=== PATIENT | female | born 1980 | race Caucasian/White ===

== ENCOUNTER 2019-11-16 16:24 | Emergency (ER) | payer OTHER, SELFPAY ==
--- NOTE | ~2019-11-16 | XR_ITS ---
EXAMINATION: XR chest 2V 11/16/2019 17:36 INDICATION: Left chest pain and shortness of breath for 2 days PROCEDURE: 2 view chest COMPARISON: 03/24/2019 FINDINGS: The lungs are clear. The cardiomediastinal silhouette is within normal limits. There are no pleural effusions. There is no pneumothorax suspected. IMPRESSION: 1: NO ACUTE CARDIOPULMONARY DISEASE. Reviewed, dictated and finalized at location A. [facility] RESEARCH TECHNICIAN
[2019-11-16 16:28] VITALS: BP 117/66; PULSE 91; RESP 19; TEMP 36.2; O2SAT 100
--- NOTE | 2019-11-16 16:28 | ECG_ITS ---
Measurements Intervals [place] Rate: 72 P: 34 WI: 128 QRS: 59 QRSD: 88 T: 43 QT: 362 QTc: 398 Interpretive Statements SINUS RHYTHM WITH SINUS ARRHYTHMIA NORMAL ECG Electronically Signed On 11-16-2019 16:32:43 DIVERSITY SPECIALIST by Jacek Soliz D.O.
[2019-11-16 16:41] LABS: Basophils Percent Auto 0.3 % (0.2-1.2); Eosinophils Absolute Auto 0.2 K/mm3 (0-0.3); Eosinophils Percent Auto 1.5 % (0-4.4); Hematocrit 40.6 % (37.0-47.0); Hemoglobin 13.1 g/dL (12.0-15.0); Immature Granulocyte Absolute 0.03 K/mm3 (0.00-0.031); Immature Granulocyte Percent A 0.2 % (0-0.5); Lymphocytes Absolute Auto 3.95 K/mm3 (0.9-3.2); Lymphocytes Percent Auto 31.2 % (18.3-44.2); Mean Corpuscular HGB Conc 32.3 g/dl (32-36); Mean Corpuscular Hemoglobin 30.6 pg (26-34); Mean Corpuscular Volume 94.9 fl (80-100); Mean Platelet Volume 10.6 fl (7.4-10.4); Monocytes Absolute Auto 0.5 K/mm3 (0.1-0.6); Monocytes Percent Auto 3.9 % (2.6-8.5); Neutrophils Percent Auto 62.9 % (45.5-73.1); Platelet Count Result 290 k/mm3 (150-375); Red Blood Count 4.28 M/mm3 (4.2-5.4); Red Cell Distribution Width 14.9 % (11.5-14.5); White Blood Count 12.7 K/mm3 (4.5-10.0)
[2019-11-16 16:51] LABS: INR 0.8; Prothrombin Time 11.2 Seconds (11.1-14.7)
[2019-11-16 16:52] LABS: Partial Thromboplastin Time 26.9 SECONDS (22.3-36.8)
[2019-11-16 16:57] LABS: Blood Urea Nitrogen 6 mg/dL (7-17); Calcium 8.8 mg/dL (8.4-10.2); Carbon Dioxide 25 mmol/L (22-30); Chloride 104 mmol/L (98-107); Estimated Glomerular Filt Rate > 60; Glucose 99 mg/dL (65-105); Potassium 3.9 mmol/L (3.4-5.0); Sodium 138 mmol/L (137-145)
[2019-11-16 17:05] LABS: NT Pro B Type Natriuretic Pept 152 PG/ML (5-100)
[2019-11-16 17:09] LABS: Troponin I < 0.012 ng/mL (0.000-0.034)
== END 2019-11-16 18:34 | disposition left against medical advice (07) ==
LOC: ANHED 18:43
PROVIDERS: Emergency Provider Emergency Medicine; PCP Emergency Medicine
DX: R07.9 Chest pain, unspecified (principal)
CPT/HCPCS: 36415; 71046; 80048; 83880; 84484; 85025; 85610; 85730; 93005; 99199

== ENCOUNTER 2020-06-11 17:18 | Emergency (ER) | payer OTHER, SELFPAY ==
[2020-06-11 17:21] VITALS: BP 125/74; PULSE 89; RESP 16; TEMP 36.8; O2SAT 100
--- NOTE | 2020-06-11 19:27 | PC.NURSE ---
pt called to triage for repeat vital signs, no answer at this time.
--- NOTE | 2020-06-11 19:52 | PC.NURSE ---
pt called for second time to be called back to ED; no answer at this time.
== END 2020-06-11 19:52 | disposition left against medical advice (07) ==
PROVIDERS: PCP Emergency Medicine
DX: Z53.21 Procedure and treatment not carried out due to patient leaving prior to being seen by health care provider (principal)
CPT/HCPCS: 99199

== ENCOUNTER 2020-06-13 10:14 | Emergency (ER) | payer OTHER, SELFPAY ==
[2020-06-13 10:30] VITALS: BP 125/66; PULSE 81; RESP 18; TEMP 36.5; O2SAT 100
[2020-06-13 10:46] LABS: Basophils Percent Auto 0.3 % (0.2-1.2); Eosinophils Absolute Auto 0.1 K/mm3 (0-0.3); Hematocrit 38.9 % (37.0-47.0); Hemoglobin 13.1 g/dL (12.0-15.0); Immature Granulocyte Absolute 0.04 K/mm3 (0.00-0.031); Immature Granulocyte Percent A 0.3 % (0-0.5); Lymphocytes Absolute Auto 3.14 K/mm3 (0.9-3.2); Mean Corpuscular HGB Conc 33.7 g/dl (32-36); Mean Corpuscular Hemoglobin 30.5 pg (26-34); Mean Corpuscular Volume 90.7 fl (80-100); Mean Platelet Volume 10.9 fl (7.4-10.4); Monocytes Absolute Auto 0.9 K/mm3 (0.1-0.6); Monocytes Percent Auto 7.1 % (2.6-8.5); Neutrophils Absolute Auto 8.8 K/mm3 (1.3-6.7); Neutrophils Percent Auto 67.3 % (45.5-73.1); Platelet Count Result 253 k/mm3 (150-375); Red Blood Count 4.29 M/mm3 (4.2-5.4); Red Cell Distribution Width 15.5 % (11.5-14.5); White Blood Count 13.1 K/mm3 (4.5-10.0)
[2020-06-13 10:58] LABS: Alanine Aminotransferase 18 U/L (4-35); Albumin Level 3.8 g/dL (3.5-5.1); Alkaline Phosphatase 67 U/L (38-126); Anion Gap 5 mmol/L (8-16); Aspartate Amino Transferase 26 U/L (14-36); Bilirubin,Total 0.2 mg/dL (0.2-1.3); Blood Urea Nitrogen 11 mg/dL (7-17); Calcium 9.2 mg/dL (8.4-10.2); Carbon Dioxide 22 mmol/L (22-30); Chloride 108 mmol/L (98-107); Estimated CRCL calculation 90 ml/min; Estimated Glomerular Filt Rate > 60; Glucose 71 mg/dL (65-105); Potassium 3.8 mmol/L (3.4-5.0); Sodium 135 mmol/L (137-145)
[2020-06-13 11:22] VITALS: BP 120/67; PULSE 67; RESP 14; O2SAT 100
--- NOTE | 2020-06-13 12:05 | ED.WOUNDLAC ---
HPI - Wound/Laceration General Chief Complaint: Wound/Laceration Stated Complaint: left breast infection Time Seen by Provider: 06/13/20 10:31 Source: patient Mode of arrival: ambulatory Limitations: no limitations History of Present Illness HPI narrative: Patient is a 39-year-old female who presents to emergency department for evaluation of redness and tenderness of the left nipple for the last week or more has been on Bactrim for 5 days and is currently on a 5-day course patient denies injury trauma or similar occurrence patient notes moderate aching pain with any touch or movement Related Data Home Medications Medication Instructions Recorded Confirmed furosemide DAILY 06/11/20 potassium chloride meq PO DAILY 06/11/20 sulfamethoxazole-trimethoprim BID 06/11/20 Allergies Allergy/AdvReac Type Severity Reaction Status Date / Time Penicillins Allergy Unknown Dizziness, Verified 06/13/20 10:36 N/V Review of Systems Review of Systems: All systems reviewed & are unremarkable except as noted in HPI and below PMFSH Social History Social History Gender identity (if verbalized by the patient): Female Exam Narrative: Exam Narrative: GENERAL: Well-appearing, well-nourished, and in no acute distress. HEAD: Normocephalic, atraumatic. EYES: PERRLA and EOMI. ENT: Nares clear, no rhinorrhea or epistaxis. Mucous membranes moist. CHEST: Clear to auscultation. No respiratory distress. No wheezes rales or rhonchi HEART: Regular rate and rhythm. No murmur heard. EXTREMITIES: Normal range of motion. No edema. SKIN: Warm, dry, no rash. Patient with tender swollen slightly erythematous left nipple with fluctuance at 4-6 o'clock no other cellulitic changes or tenderness of the breast NEURO: No focal deficits. Alert and oriented x3. PSYCH: Normal mood and affect. Course Course Emergency Course: Patient in the room in no distress aware of case findings treatment plan and diagnosis agreeing to follow with her unit operator Vital Signs Vital signs: Vital Signs Temperature 97.7 F 06/13/20 10:30 Pulse Rate 81 06/13/20 10:30 Respiratory Rate 18 06/13/20 10:30 Blood Pressure 125/66 06/13/20 10:30 Pulse Oximetry 100 06/13/20 10:30 Temperature 97.7 F 06/13/20 10:30 Pulse Rate 67 06/13/20 11:22 Respiratory Rate 14 06/13/20 11:22 Blood Pressure 120/67 06/13/20 11:22 Pulse Oximetry 100 06/13/20 11:22 Procedures Abscess I/D other: Date of Incision: 06/13/20 Time of Incision: 12:07 Side (if applicable): left Local Anesthetic: lidocaine 1% Technique: needle aspiration Amount of fluid expressed (mL): 2 Irrigation: No Packing used?: none I&D Results: Pus and Blood MDM - Wound/Laceration MDM Narrative Medical decision making narrative: Patient with I&D of abscess of the nipple will be discharged home felt appropriate for outpatient reevaluation given reasons to return cultures were taken Lab Data Result diagrams: 06/13/20 10:37 06/13/20 10:37 Labs: Lab Results 06/13/20 06/13/20 Range/Units 10:37 10:37 WBC 13.1 H (4.5-10.0) K/mm3 RBC 4.29 (4.2-5.4) M/mm3 Hgb 13.1 (12.0-15.0) g/dL Hct 38.9 (37.0-47.0) % MCV 90.7 (80-100) fl MCH 30.5 (26-34) pg MCHC 33.7 (32-36) g/dl RDW 15.5 H (11.5-14.5) % Plt Count 253 (150-375) k/mm3 MPV 10.9 H (7.4-10.4) fl Immature Gran % (Auto) 0.3 (0-0.5) % Neut % (Auto) 67.3 (45.5-73.1) % Lymph % (Auto) 24.0 (18.3-44.2) % [place] % (Auto) 7.1 (2.6-8.5) % Eos % (Auto) 1.0 (0-4.4) % Baso % (Auto) 0.3 (0.2-1.2) % Lymph # (Auto) 3.14 (0.9-3.2) K/mm3 [place] # (Auto) 0.9 H (0.1-0.6) K/mm3 Eos # (Auto) 0.1 (0-0.3) K/mm3 Baso # (Auto) 0.0 (0.0-0.1) K/mm3 Abs Immat Gran (auto) 0.04 H (0.00-0.031) K/mm3 Absolute Neuts (auto) 8.8 H (1.3-6.7)
[2020-06-13 12:27] VITALS: BP 114/66; PULSE 64; RESP 18; O2SAT 100
== END 2020-06-13 12:34 | disposition home or self-care (01) ==
PROVIDERS: Emergency Provider Emergency Medicine; PCP Emergency Medicine
DX: N61.1 Abscess of the breast and nipple (principal)
CPT/HCPCS: 10160; 36415; 80053; 85025; 87070; 87075; 87205; 99283

== ENCOUNTER 2020-08-31 09:16 | Emergency (ER) | payer OTHER, SELFPAY ==
--- NOTE | ~2020-08-31 | US_ITS ---
EXAMINATION: US pelvic complete w TV EXAM DATE: 08/31/2020 11:12 INDICATION: Left-sided pelvic pain. TECHNIQUE: Pelvic transabdominal and transvaginal sonogram was performed. There are multiple graysca le and Doppler images available for interpretation. Comparison is made to prior examination from 03/08. FINDINGS: Uterus measures 8.2 x 5.6 x 4.4 cm, and is morphologically normal. Endometrial stripe dayron sures 11 mm, within normal limits. There are nabothian cysts. There is no free pelvic fluid. Right adnexa: The ovary measures 4.5 x 3.1 x 1.4 cm and is morphologically normal. Ovarian vascular f low confirmed. Left adnexa: The ovary measures 4.3 x 2.5 x 1.9 cm and is morphologically normal. Ovarian vascular fl ow confirmed. IMPRESSION: 1. Unremarkable pelvic ultrasound exam. Reviewed, dictated and finalized at location A. PULLER
--- NOTE | ~2020-08-31 | CT_ITS ---
EXAMINATION: CT abdomen pelvis w con DATE: 08/31/2020 11:51 INDICATION: Abdomen pain. TECHNIQUE: Computed tomography (CT) of the abdomen and pelvis was performed with 100 cc Omnipaque 350 intravenous contrast. The dose-length product was 1121.13 mGy-cm. Automated exposure control and ite rative reconstruction technique were employed. COMPARISON: None. FINDINGS: Heart size is normal. No significant pleural or pericardial effusion. Bibasilar dependent a telectasis. No significant vascular abnormality. No lymphadenopathy. The liver, spleen, pancreas, adrenal glands and kidneys are unremarkable. Gallbladder is present. Small amount of complex free fluid in the lower abdomen and pelvis, likely physiologic. 2 cm left adnexal cyst, likely ovarian. Normal appendix. Non obstructive bowel gas pattern. No free air. No acute osseous abnormality. IMPRESSION: 1. Small amount of complex free fluid in the lower abdomen and pelvis, likely proteinaceous or hemorr hagic fluid from ruptured ovarian cyst. 2: Left adnexal cyst measuring 2 cm, likely ovarian. Reviewed, dictated and finalized at location B. ANICAL DRAWING TEACHER IMPRESSION: 1. Small amount of complex free fluid in the lower abdomen and pelvis, likely p roteinaceous or hemorrhagic fluid from ruptured ovarian cyst. 2: Left adnexal cyst measuring 2 cm, likely ovarian.
[2020-08-31 09:33] VITALS: BP 107/62; PULSE 78; RESP 18; TEMP 36.6; O2SAT 100
[2020-08-31 10:03] LABS: Add Urine Microscopic? YES; Appearance Urine Clear (Clear); Bacteria Urine Trace /hpf; Bilirubin Urine Negative (Negative); Blood Urine Negative (Negative); Color Urine Yellow (Yellow); Glucose Urine UA Negative (Negative); Ketones Urine Negative (Negative); Leukocyte Esterase Ur Negative LEU/UL (Negative); Mucus Urine Few /lpf; Nitrate Urine Negative (Negative); Protein Urine 1+ mg/dL (Negative); Specific Grav Ur 1.023 (1.001-1.035); Squamous Epithelial Cell Urine Few /hpf (Few); Transitional Epi Cells Urine Rare /hpf (None Seen); WBC Urine 0-3 /hpf
[2020-08-31 10:20] LABS: Basophils Percent Auto 0.4 % (0.2-1.2); Eosinophils Absolute Auto 0.1 K/mm3 (0-0.3); Eosinophils Percent Auto 1.2 % (0-4.4); Hematocrit 38.7 % (37.0-47.0); Hemoglobin 12.9 g/dL (12.0-15.0); Immature Granulocyte Absolute 0.04 K/mm3 (0.00-0.031); Immature Granulocyte Percent A 0.4 % (0-0.5); Lymphocytes Absolute Auto 2.32 K/mm3 (0.9-3.2); Mean Corpuscular HGB Conc 33.3 g/dl (32-36); Mean Platelet Volume 10.2 fl (7.4-10.4); Monocytes Absolute Auto 0.6 K/mm3 (0.1-0.6); Monocytes Percent Auto 5.9 % (2.6-8.5); Neutrophils Absolute Auto 7.4 K/mm3 (1.3-6.7); Neutrophils Percent Auto 70.1 % (45.5-73.1); Platelet Count Result 332 k/mm3 (150-375); Red Blood Count 4.16 M/mm3 (4.2-5.4); Red Cell Distribution Width 15.1 % (11.5-14.5); White Blood Count 10.6 K/mm3 (4.5-10.0)
[2020-08-31 11:09] VITALS: BP 105/65; PULSE 62; RESP 18; TEMP 36.7; O2SAT 100
[2020-08-31 11:12] LABS: Alanine Aminotransferase 19 U/L (4-35); Albumin Level 3.2 g/dL (3.5-5.1); Alkaline Phosphatase 77 U/L (38-126); Anion Gap 2 mmol/L (8-16); Aspartate Amino Transferase 30 U/L (14-36); Bilirubin,Total 0.1 mg/dL (0.2-1.3); Blood Urea Nitrogen 9 mg/dL (7-17); Calcium 8.5 mg/dL (8.4-10.2); Carbon Dioxide 26 mmol/L (22-30); Chloride 109 mmol/L (98-107); Estimated CRCL calculation 97 ml/min; Estimated Glomerular Filt Rate > 60; Glucose 101 mg/dL (65-105); Lipase 38 U/L (23-300); Potassium 3.9 mmol/L (3.4-5.0); Sodium 137 mmol/L (137-145)
[2020-08-31] MEDS: FAMOTIDINE 20 MG/2 ML VIAL IV PUSH (11:16)
[2020-08-31] MEDS: ONDANSETRON INJ 4 MG/2 ML VIAL IV PUSH (11:16)
[2020-08-31] MEDS: SODIUM CHLORIDE 0.9% IV 1,000 ML 999 ML IV CONT (11:16)
[2020-08-31] MEDS: MORPHINE SULFATE (*CRX) 4 MG/ML INJ IV PUSH (11:16)
--- NOTE | 2020-08-31 11:18 | ED.GENADULT ---
HPI - General Adult General Chief complaint: Abdominal Pain Stated complaint: L abd pain Time Seen by Provider: 08/31/20 10:08 Source: patient and family Mode of arrival: ambulatory Limitations: no limitations History of Present Illness HPI narrative: Patient is a 40-year-old female who presents to emergency department for evaluation of suprapubic abdominal pain that began this morning is a sharp stabbing pain patient believes the pain is consistent with ovarian cyst which she has had historically patient notes slightly worse today with associated nausea denies radiation of pain or other complaints or symptoms presents uncomfortable but in no distress has not taken anything for her Related Data Home Medications Medication Instructions Recorded Confirmed furosemide 08/31/20 potassium chloride meq PO 08/31/20 Allergies Allergy/AdvReac Type Severity Reaction Status Date / Time Penicillins Allergy Unknown Dizziness, Verified 06/13/20 10:36 N/V Review of Systems Review of Systems: All systems reviewed & are unremarkable except as noted in HPI and below PMFSH Social History Social History (Updated 08/31/20 @ 11:19 by Nino Jorgensen PA-C) Smoking status: Current every day smoker Gender identity (if verbalized by the patient): Female Exam Narrative: Exam Narrative: GENERAL: Well-appearing, well-nourished, and in no acute distress. HEAD: Normocephalic, atraumatic. EYES: PERRLA and EOMI. ENT: Nares clear, no rhinorrhea or epistaxis. Mucous membranes moist. CHEST: Clear to auscultation. No respiratory distress. No wheezes rales or rhonchi HEART: Regular rate and rhythm. No murmur heard. Normal peripheral pulses. ABDOMEN: Soft, suprapubic tenderness without rebound or guarding remainder of abdomen nontender, nondistended, normal active bowel sounds. EXTREMITIES: Normal range of motion. No edema. SKIN: Warm, dry, no rash. NEURO: No focal deficits. Alert and oriented x3. PSYCH: Normal mood and affect. Course Course Emergency Course: Patient had evaluation with blood work and imaging which revealed an ovarian cyst which is consistent with her prior exacerbations and current pain will be discharged home afebrile nontoxic-appearing no distress treat in the emergency department felt appropriate for outpatient reevaluation provided with gynecological follow-up Vital Signs Vital signs: Vital Signs Temperature 97.8 F 08/31/20 09:33 Pulse Rate 78 08/31/20 09:33 Respiratory Rate 18 08/31/20 09:33 Blood Pressure 107/62 08/31/20 09:33 Pulse Oximetry 100 08/31/20 09:33 Temperature 98.1 F 08/31/20 11:09 Pulse Rate 62 08/31/20 11:09 Respiratory Rate 18 08/31/20 11:09 Blood Pressure 105/65 08/31/20 11:09 Pulse Oximetry 100 08/31/20 11:09 Medical Decision Making MDM Narrative Medical decision making narrative: Patient presented with pain that she felt could be ovarian in nature with the imaging it is felt that this is correct patient will be discharged with gynecological follow-up provided with reasons to return felt appropriate for outpatient reevaluation Vital Signs Vital Signs: Vital Signs Temperature 97.8 F 08/31/20 09:33 Pulse Rate 78 08/31/20 09:33 Respiratory Rate 18 08/31/20 09:33 Blood Pressure 107/62 08/31/20 09:33 Pulse Oximetry 100 08/31/20 09:33 Temperature 98.1 F 08/31/20 11:09 Pulse Rate 62 08/31/20 11:09 Respiratory Rate 18 08/31/20 11:09 Blood Pressure 105/65 08/31/20 11:09 Pulse Oximetry 100 08/31/20 11:09 Lab Data Result diagrams: 08/31/20 10:07 08/31/20 10:43 Labs: Lab Results 08/31/20 08/31/20 08/31/20 Range/Units 09:54 10:07 10:43 WBC 10.6 H (4.5-10.0) K/mm3 RBC 4.16 L (4.2-5.4) M/mm3 Hgb 12.9 (12.0-15.0) g/dL Hct 38.7 (37.0-47.0) % MCV 93.0 (80-100) fl MCH 31.0 (26-34) pg MCHC 33.3 (32-36) g/dl RDW 15.1 H (11.5-14.5) % Plt Count
[2020-08-31 12:14] VITALS: BP 104/54; PULSE 70; RESP 15; TEMP 36.2; O2SAT 100
[2020-08-31 13:15] VITALS: BP 105/54; PULSE 64; RESP 20; TEMP 36.6; O2SAT 95
== END 2020-08-31 13:30 | disposition home or self-care (01) ==
PROVIDERS: Emergency Provider Emergency Medicine; PCP Emergency Medicine
DX: N83.202 Unspecified ovarian cyst, left side (principal); F17.200 Nicotine dependence, unspecified, uncomplicated
CPT/HCPCS: 36415; 74177; 76830; 76856; 80053; 81001; 81025; 83690; 85025; 96361; 96374; 96375; 99284; J0131; J2270; J2405; J7030; Q9967

== ENCOUNTER 2020-12-01 00:28 | Emergency (ER) | payer OTHER, SELFPAY ==
[2020-12-01 00:40] VITALS: BP 149/117; PULSE 89; RESP 18; TEMP 36.6; O2SAT 100
[2020-12-01] MEDS: ONDANSETRON HCL ODT 4 MG TABLET PO (01:17)
--- NOTE | 2020-12-01 01:25 | PC.NURSE ---
pt denies suicidal thoughts at this time, stated said things she didn't mean, friend at bedside,MD aware.
[2020-12-01 01:30] VITALS: BP 129/82; PULSE 84; RESP 16; O2SAT 97
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
== END 2020-12-01 01:40 | disposition home or self-care (01) ==
PROVIDERS: Emergency Provider Emergency Medicine; PCP Emergency Medicine
DX: F10.129 Alcohol abuse with intoxication, unspecified (principal); K21.9 Gastro-esophageal reflux disease without esophagitis; F17.200 Nicotine dependence, unspecified, uncomplicated
CPT/HCPCS: 99283; A9270

== ENCOUNTER 2021-04-28 12:15 | Emergency (ER) | payer OTHER, SELFPAY ==
[2021-04-28 12:33] VITALS: BP 110/65; PULSE 84; RESP 20; TEMP 36.4; O2SAT 99
--- NOTE | 2021-04-28 12:40 | ED.GENADULT ---
HPI - General Adult General Chief complaint: Upper Respiratory Infection Stated complaint: sneezing/cough/headache Source: patient Mode of arrival: ambulatory Limitations: no limitations History of Present Illness HPI narrative: 40 y/o female. PMHx: GERD, HTN. Presents to [facility] today with acute concerns for viral illness or Covid 19. Pt tells me that for the past 1 week, she has been experiencing body aches, VINCENT, as well as one isolated episode of emesis last HS. Young child at home is positive for Covid 19 virus. No known fevers. No cough, chest pain, abdominal pain. She is concerned because two additional children in home are now ill with similar issues. She has relayed no additional acute complaints of illness upon exam. Related Data Home Medications Medication Instructions Recorded Confirmed furosemide 08/31/20 oxycodone-acetaminophen 04/28/21 Allergies Allergy/AdvReac Type Severity Reaction Status Date / Time Penicillins Allergy Unknown Dizziness, Verified 06/13/20 10:36 N/V Review of Systems Review of Systems: CONSTITUTIONAL: VINCENT, body aches. Denies fever, chills, sweats. EYES: Denies visual changes, redness, discharge. ENT: Denies rhinorrhea, congestion, sore throat, otalgia. CARDIOVASCULAR: Denies chest pain, palpitations, edema. RESPIRATORY: Denies dyspnea, wheezing, cough GASTROINTESTINAL: Denies abdominal pain. Vomited X 1. No diarrhea. GENITOURINARY: Denies dysuria, hematuria, abnormal discharge SKIN: Denies rash or itching. MUSCULOSKELETAL: Denies acute back pain, joint pain, or myalgia. NEUROLOGIC: Denies numbness, or focal weakness. PSYCHIATRIC: Denies anxiety or depression. All systems reviewed & are unremarkable except as noted in HPI and below PMFSH Past Medical History Medical History GERD (gastroesophageal reflux disease) Social History Social History Smoking status: Current every day smoker Gender identity (if verbalized by the patient): Female Exam Narrative: GENERAL: This is a well-nourished, well-developed adult, in no apparent distress. HEAD: normocephalic, atraumatic. EYES: PERRL. Sclera clear/white. EARS: External ears normal, auditory canals clear and without drainage, TMs normal. NOSE: External nose normal. Positive Rhinorrhea, no obstruction, nares patent. THROAT: Mucous membranes moist, posterior pharynx clear. No exudates. NECK: Neck supple, non-tender without lymphadenopathy, masses or thyromegaly. CARDIOVASCULAR: Regular rate and rhythm without murmurs, gallops, or rubs. RESPIRATORY: Clear to auscultation. Breath sounds equal bilaterally. No wheezes, rales, or rhonchi. GASTROINTESTINAL: Abdomen soft, non-tender, nondistended. Bowel sounds are active. No guarding. SKIN: warm, intact with no suspicious lesions or rash, good texture and turgor. NEURO: Alert, active, and age appropriate. No focal neurologic deficits. EXTREMITIES: Negative. Course Course Emergency Course: -40 y/o female. PMH Non-contributory. -Concern for viral illness or Covid 19. -Two additional children in home ill with similar viral issues, one positive for Covid. -Check Rapid to PCR. Vital Signs Vital signs: Vital Signs Temperature 36.4 C L 04/28/21 12:33 Pulse Rate 84 04/28/21 12:33 Respiratory Rate 20 04/28/21 12:33 Blood Pressure 110/65 04/28/21 12:33 Pulse Oximetry 99 04/28/21 12:33 Temperature 36.4 C L 04/28/21 12:33 Pulse Rate 84 04/28/21 12:33 Respiratory Rate 20 04/28/21 12:33 Blood Pressure 110/65 04/28/21 12:33 Pulse Oximetry 99 04/28/21 12:33 Medical Decision Making [facility] Narrative Medical decision making narrative: -Rapid Covid PCR negative. However, considering that young child is POSITIVE Covid, will assume similar viral illness. -Resume home Viral remedies prn for symptomatic relief. -Resume all self is
== END 2021-04-28 13:33 | disposition home or self-care (01) ==
PROVIDERS: Emergency Provider Nurse Practitioner Adult Health
DX: B34.9 Viral infection, unspecified (principal); Z20.822 Contact with and (suspected) exposure to COVID-19; K21.9 Gastro-esophageal reflux disease without esophagitis; F17.200 Nicotine dependence, unspecified, uncomplicated
CPT/HCPCS: 87426; 99213; C9803; G0463

== ENCOUNTER 2021-06-30 12:59 | Emergency (ER) | payer OTHER, SELFPAY ==
--- NOTE | ~2021-06-30 | XR_ITS ---
EXAMINATION: XR chest 2V 06/30/2021 13:38 INDICATION: Chest pain PROCEDURE: 2 view chest COMPARISON: Comparison to multiple prior studies sequentially, with oldest reviewed study dated 10/2017. FINDINGS: The lungs are clear. The cardiomediastinal silhouette is within normal limits. There are no pleural effusions. There is no pneumothorax suspected. IMPRESSION: 1: NO ACUTE CARDIOPULMONARY DISEASE. Reviewed, dictated and finalized at location A.
--- NOTE | 2021-06-30 13:00 | ECG_ITS ---
Measurements Intervals [place] Rate: 88 P: 52 AR: 115 QRS: 58 QRSD: 92 T: 49 QT: 383 QTc: 464 Interpretive Statements SINUS RHYTHM WITH SHORT AR INTERVAL BORDERLINE T WAVE ABNORMALITY- ANT/INF LEADS BASELINE WANDER- V3-V4 BORDERLINE ECG Electronically Signed On 06-30-2021 16:37:06 CDT by Jacek Soliz D.O.
[2021-06-30 13:09] VITALS: BP 117/71; PULSE 80; RESP 16; TEMP 36.4; O2SAT 100
[2021-06-30 13:24] LABS: Basophils Percent Auto 0.3 % (0.2-1.2); Eosinophils Absolute Auto 0.1 K/mm3 (0-0.3); Eosinophils Percent Auto 1.2 % (0-4.4); Hematocrit 44.2 % (37.0-47.0); Hemoglobin 14.7 g/dL (12.0-15.0); Immature Granulocyte Absolute 0.03 K/mm3 (0.00-0.031); Immature Granulocyte Percent A 0.3 % (0-0.5); Lymphocytes Absolute Auto 2.65 K/mm3 (0.9-3.2); Lymphocytes Percent Auto 26.2 % (18.3-44.2); Mean Corpuscular HGB Conc 33.3 g/dl (32-36); Mean Corpuscular Hemoglobin 31.5 pg (26-34); Mean Corpuscular Volume 94.8 fl (80-100); Mean Platelet Volume 10.3 fl (7.4-10.4); Monocytes Absolute Auto 0.2 K/mm3 (0.1-0.6); Monocytes Percent Auto 2.1 % (2.6-8.5); Neutrophils Absolute Auto 7.1 K/mm3 (1.3-6.7); Neutrophils Percent Auto 69.9 % (45.5-73.1); Platelet Count Result 288 k/mm3 (150-375); Red Blood Count 4.66 M/mm3 (4.2-5.4); Red Cell Distribution Width 14.6 % (11.5-14.5); White Blood Count 10.1 K/mm3 (4.5-10.0)
[2021-06-30 13:35] LABS: Anion Gap 9 mmol/L (8-16); Blood Urea Nitrogen 9 mg/dL (7-17); Calcium 9.3 mg/dL (8.4-10.2); Carbon Dioxide 24 mmol/L (22-30); Chloride 108 mmol/L (98-107); Estimated CRCL calculation 106 ml/min; Estimated Glomerular Filt Rate > 60; Glucose 101 mg/dL (65-110); Potassium 4.1 mmol/L (3.4-5.0); Sodium 141 mmol/L (137-145)
[2021-06-30 13:38] LABS: INR 0.9; Prothrombin Time 11.9 Seconds (11.1-14.7)
[2021-06-30 13:46] LABS: Troponin I < 0.012 ng/mL (0.000-0.034)
[2021-06-30 15:16] VITALS: BP 129/83; PULSE 97; RESP 20; TEMP 37.4; O2SAT 96
--- NOTE | 2021-06-30 17:55 | PC.NURSE ---
pt not in waiting room when called
== END 2021-07-01 04:35 | disposition left against medical advice (07) ==
PROVIDERS: Emergency Provider Emergency Medicine
DX: R06.00 Dyspnea, unspecified (principal)
CPT/HCPCS: 36415; 71046; 80048; 84484; 85025; 85610; 85730; 93005; 99199

== ENCOUNTER 2021-07-29 10:13 | Emergency (ER) | payer OTHER, SELFPAY ==
[2021-07-29 10:28] VITALS: BP 146/76; PULSE 75; RESP 16; TEMP 36.9; O2SAT 100
--- NOTE | 2021-07-29 10:44 | ED.URI ---
HPI - URI/Sore Throat General Chief Complaint: Upper Respiratory Infection Stated Complaint: Cough,Sore Throat History of Present Illness HPI Narrative: This is a 41-year-old female that has been vaccinated for Covid comes in complaining of a cough and congestion with a sore throat states has been going on for approximately 5 days. Patient states that last night she has felt like she had the chills. Patient states that she is taken some cough and cold medicine. Patient denies gargling any warm salt water. Patient denies any fever nausea and/or vomiting. Related Data Home Medications Medication Instructions Recorded Confirmed furosemide 20 mg PO BID 08/31/20 07/29/21 Allergies Allergy/AdvReac Type Severity Reaction Status Date / Time Penicillins Allergy Unknown Dizziness, Verified 07/29/21 10:24 N/V Review of Systems Review of Systems: CONSTITUTIONAL: Reports fever, chills, or sweats. EYES: Denies visual changes, redness, or discharge. ENT: Reports rhinorrhea, congestion, sore throat, or otalgia. CARDIOVASCULAR:Denies chest pain, palpitations, or edema. RESPIRATORY: Reports cough or dyspnea. GASTROINTESTINAL: Denies abdominal pain, nausea, vomiting, or diarrhea. GENITOURINARY: Denies dysuria or hematuria. SKIN:[Denies rash or itching. MUSCULOSKELETAL:Denies back pain, joint pain, or myalgia. NEUROLOGIC: Denies headache, numbness, or weakness. PSYCHIATRIC:Denies anxiety or depression PMFSH Past Medical History Medical History GERD (gastroesophageal reflux disease) Social History Social History Smoking status: Current every day smoker Gender identity (if verbalized by the patient): Female Comments At time as signature, I have reviewed and agree with nursing past medical, social, surgical and family history. Please see nursing chart for further information. There is no relevant family history pertinent to the presenting complaint. Exam Narrative: GENERAL:Well-appearing, well-nourished, and in no acute distress. HEAD:Normocephalic, atraumatic. EYES: PERRLA and EOMI. ENT: Nares clear, moderate clear rhinorrhea o. Mucous membranes moist. Pharyngeal erythema NECK: Supple. CHEST: Clear to Cough slightly course Auscultation. No respiratory distress. HEART: Regular rate and rhythm. . Normal peripheral pulses. ABDOMEN: Soft, nontender, nondistended, normal active bowel sounds. EXTREMITIES: Normal range of motion. No edema. SKIN: Warm, dry, no rash. NEURO: No focal deficits. Alert and oriented x3. Blood pressure slightly elevated Course Course Emergency Course: Negative strep Vital Signs Vital signs: Vital Signs Temperature 98.5 F 07/29/21 10:28 Pulse Rate 75 07/29/21 10:28 Respiratory Rate 16 07/29/21 10:28 Blood Pressure 146/76 H 07/29/21 10:28 Pulse Oximetry 100 07/29/21 10:28 Temperature 98.5 F 07/29/21 10:28 Pulse Rate 75 07/29/21 10:28 Respiratory Rate 16 07/29/21 10:28 Blood Pressure 146/76 H 07/29/21 10:28 Pulse Oximetry 100 07/29/21 10:28 MDM - URI/Sore Throat Differential Diagnosis Differential diagnosis: Likely upper respiratory infection, otitis media, sinusitis, viral infection, bronchitis, influenza and pharyngitis Lab Data Labs: Strep Screen Presumptive Negative *(Reference Range: Negative)* Discharge Plan Discharge Clinical Impression: Bronchitis Pharyngitis Qualifiers: Pharyngitis/tonsillitis etiology: unspecified etiology Qualified Code(s): J02.9 - Acute pharyngitis, unspecified Patient Disposition: Home, Self-Care Condition: Stable Instructions: Antibiotic Form, Pharyngitis (ED), Acute Bronchitis (ED) Additional Instructions: Viral illness may last between 7-12days; antibiotic is NOT recommended at this time. Recommend antihistamine such as Benadryl
== END 2021-07-29 11:05 | disposition home or self-care (01) ==
PROVIDERS: Emergency Provider Nurse Practitioner Family
DX: J40 Bronchitis, not specified as acute or chronic (principal); J02.9 Acute pharyngitis, unspecified; F17.200 Nicotine dependence, unspecified, uncomplicated; K21.9 Gastro-esophageal reflux disease without esophagitis
CPT/HCPCS: 87081; 87880; 99213; G0463

== ENCOUNTER → 2021-07-30 03:29 | Outpatient (CLI) | payer OTHER, SELFPAY ==
[2021-07-30 18:29] LABS: SARS-CoV-2 RNA PCR Negative
== END ==
PROVIDERS: Visit Provider Nurse Practitioner Family
DX: R05.9 Cough, unspecified (principal); Z20.822 Contact with and (suspected) exposure to COVID-19
CPT/HCPCS: C9803; U0003; U0005

== ENCOUNTER 2021-08-08 08:58 | Emergency (ER) | payer OTHER, SELFPAY ==
--- NOTE | ~2021-08-08 | XR_ITS ---
EXAMINATION: XR chest 1V portable 08/08/2021 09:40 INDICATION: Cough PROCEDURE: AP portable chest COMPARISON: Comparison to multiple prior studies sequentially, with oldest reviewed study dated 03/22. FINDINGS: The lungs are clear. The cardiomediastinal silhouette is within normal limits. There are no pleural effusions. There is no pneumothorax suspected. IMPRESSION: 1: NO ACUTE CARDIOPULMONARY DISEASE. Reviewed, dictated and finalized at location A. RUCTIONAL SYSTEMS SPECIALIST
[2021-08-08 09:03] VITALS: BP 147/90; PULSE 88; RESP 16; TEMP 36.6; O2SAT 100
--- NOTE | 2021-08-08 09:29 | ED.GENADULT ---
HPI - General Adult General Chief complaint: Nausea/Vomiting/Diarrhea Stated complaint: multiple issues Time Seen by Provider: 08/08/21 09:18 Source: patient Mode of arrival: ambulatory Limitations: no limitations History of Present Illness HPI narrative: Patient drove herself to the emergency room, complaining of multiple symptoms started 3 weeks ago including not feeling well, nasal congestion, postnasal discharge, coughing, headache, body aches, nausea, vomiting and diarrhea. Patient was seen at urgent care yesterday and started on steroid and inhaler without any improvement. Patient is fully vaccinated for COVID-19, last one was December 2020. Patient denies exposure to anybody known having COVID-19. Patient denies any family member having similar symptoms. Patient smokes, does not drink or uses drugs. Last menstrual period 1 week ago. Related Data Home Medications Medication Instructions Recorded Confirmed furosemide 20 mg PO BID 08/31/20 07/29/21 Allergies Allergy/AdvReac Type Severity Reaction Status Date / Time Penicillins Allergy Unknown Dizziness, Verified 08/08/21 09:07 N/V Review of Systems Review of Systems: CONSTITUTIONAL: Denies fever, chills, or sweats. EYES: Denies visual changes, redness, or discharge. ENT: Denies rhinorrhea, congestion, sore throat, or otalgia. CARDIOVASCULAR: Denies chest pain, palpitations, or edema. RESPIRATORY: Denies cough or dyspnea. GASTROINTESTINAL: Denies abdominal pain, nausea, vomiting, or diarrhea. GENITOURINARY: Denies dysuria or hematuria. SKIN: Denies rash or itching. MUSCULOSKELETAL: Denies back pain, joint pain, or myalgia. NEUROLOGIC: Denies headache, numbness, or weakness. PSYCHIATRIC: Denies anxiety or depression. PMFSH Past Medical History Medical History GERD (gastroesophageal reflux disease) Social History Social History Smoking status: Current every day smoker Gender identity (if verbalized by the patient): Female Exam Narrative: General appearance: Well-developed, well-nourished, looks ill, sniffing, coughing, lethargic Skin: Normal color Head: Normocephalic, nontraumatic Eyes: Clear conjunctiva ENT: Oropharynx normal, ears normal, nose normal Neck: Supple, nontender Chest and respiratory: Airway patent, no respiratory distress, no accessory muscle use Heart: Regular rate/rhythm Abdomen: Soft, nontender, no organomegaly, quiet bowel sounds Vascular: Normal peripheral pulses, normal capillary refill. Musculoskeletal: Normal range of motion, nontender back Neurologic: Alert and oriented ?3, STRINGER MACHINE TENDER is normal as tested, no gross motor deficit Course Course Emergency Course: Improving Vital Signs Vital signs: Vital Signs Temperature 36.6 C 08/08/21 09:03 Pulse Rate 88 08/08/21 09:03 Respiratory Rate 16 08/08/21 09:03 Blood Pressure 147/90 H 08/08/21 09:03 Pulse Oximetry 100 08/08/21 09:03 Temperature 36.6 C 08/08/21 09:03 Pulse Rate 88 08/08/21 09:03 Respiratory Rate 16 08/08/21 09:03 Blood Pressure 147/90 H 08/08/21 09:03 Pulse Oximetry 100 08/08/21 09:[address] [facility] Narrative Medical decision making narrative: Viral syndrome is my concern. Patient is fully vaccinated for COVID-19. Covid test ordered, labs, chest x-ray, IV fluid, IV Toradol, IV Zofran ordered Differential Diagnosis Differential Diagnosis: Viral syndrome, electrolyte imbalance, Covid infection Vital Signs Vital Signs: Vital Signs Temperature 36.6 C 08/08/21 09:03 Pulse Rate 88 08/08/21 09:03 Respiratory Rate 16 08/08/21 09:0
[2021-08-08 09:37] LABS: Basophils Percent Auto 0.4 % (0.2-1.2); Eosinophils Absolute Auto 0.1 K/mm3 (0-0.3); Hematocrit 42.3 % (37.0-47.0); Hemoglobin 14.2 g/dL (12.0-15.0); Immature Granulocyte Absolute 0.03 K/mm3 (0.00-0.031); Immature Granulocyte Percent A 0.4 % (0-0.5); Lymphocytes Absolute Auto 2.62 K/mm3 (0.9-3.2); Lymphocytes Percent Auto 31.2 % (18.3-44.2); Mean Corpuscular HGB Conc 33.6 g/dl (32-36); Mean Corpuscular Hemoglobin 31.1 pg (26-34); Mean Corpuscular Volume 92.6 fl (80-100); Mean Platelet Volume 10.2 fl (7.4-10.4); Monocytes Absolute Auto 0.5 K/mm3 (0.1-0.6); Monocytes Percent Auto 6.2 % (2.6-8.5); Neutrophils Absolute Auto 5.1 K/mm3 (1.3-6.7); Neutrophils Percent Auto 60.8 % (45.5-73.1); Platelet Count Result 356 k/mm3 (150-375); Red Blood Count 4.57 M/mm3 (4.2-5.4); Red Cell Distribution Width 14.2 % (11.5-14.5); White Blood Count 8.4 K/mm3 (4.5-10.0)
[2021-08-08 09:58] LABS: Alanine Aminotransferase 22 U/L (4-35); Albumin Level 4.2 g/dL (3.5-5.1); Alkaline Phosphatase 81 U/L (38-126); Anion Gap 9 mmol/L (8-16); Aspartate Amino Transferase 26 U/L (14-36); Bilirubin,Total 0.2 mg/dL (0.2-1.3); Blood Urea Nitrogen 9 mg/dL (7-17); Calcium 8.8 mg/dL (8.4-10.2); Carbon Dioxide 25 mmol/L (22-30); Chloride 108 mmol/L (98-107); Estimated CRCL calculation 120 ml/min; Estimated Glomerular Filt Rate > 60; Glucose 98 mg/dL (65-110); Lipase 45 U/L (23-300); Sodium 142 mmol/L (137-145)
[2021-08-08] MEDS: ONDANSETRON INJ 4 MG/2 ML VIAL 8 MG IV PUSH (10:11)
[2021-08-08] MEDS: SODIUM CHLORIDE 0.9% IV 1,000 ML 999 ML IV CONT (10:12)
[2021-08-08] MEDS: KETOROLAC 30 MG/ML VIAL (*BKC) IV PUSH (10:12)
[2021-08-08 11:06] LABS: Add Urine Microscopic? YES; Appearance Urine Cloudy (Clear); Bacteria Urine Trace /hpf; Bilirubin Urine Negative (Negative); Blood Urine 3+ (Negative); Color Urine Amber (Yellow); Glucose Urine UA Negative (Negative); Ketones Urine Negative (Negative); Leukocyte Esterase Ur 2+ LEU/UL (Negative); Mucus Urine Few /lpf; Nitrate Urine Negative (Negative); Protein Urine 2+ mg/dL (Negative); RBC Urine 21-50 /hpf (0-2); Specific Grav Ur 1.024 (1.001-1.035); Squamous Epithelial Cell Urine Many /hpf (Few); Urobilinogen Urine Negative mg/dL (<2.0); WBC Urine >75 /hpf
[2021-08-08 12:02] VITALS: PULSE 84; RESP 16
== END 2021-08-08 12:02 | disposition home or self-care (01) ==
PROVIDERS: Emergency Provider Emergency Medicine
DX: N39.0 Urinary tract infection, site not specified (principal); B34.9 Viral infection, unspecified; F17.200 Nicotine dependence, unspecified, uncomplicated
CPT/HCPCS: 36415; 71045; 80053; 81001; 81025; 83690; 85025; 87086; 87088; 96361; 96365; 96375; 99284; J0696; J1885; J2405; J7030

== ENCOUNTER 2021-11-05 19:17 | Emergency (ER) | payer OTHER, SELFPAY ==
--- NOTE | ~2021-11-05 | XR_ITS ---
EXAMINATION: XR foot RT 2V DATE: 11/05/2021 21:34 INDICATION: Right foot pain. TECHNIQUE: 2 views of right foot were obtained. COMPARISON: None. FINDINGS: There are changes of bunionectomy with osteotomy of first metatarsal with fixation with 2 s crews. There is an osteotomy of first proximal phalanx with fixation with a staple. There are changes of ankylosis procedure of second proximal interphalangeal joint with instrumentation. There is a scr ew in head of second metatarsal. There is an osteotomy of neck of fifth metatarsal with screw fixatio n. No acute fracture. Joint spaces are normal. There is a small enthesophyte at plantar aspect of miryam caneal tuberosity. IMPRESSION: 1. Surgical changes of the foot. Reviewed, dictated and finalized at location A. PATIONAL THERAPY CO DIRECTOR
[2021-11-05 19:40] VITALS: BP 133/107; PULSE 91; RESP 24; TEMP 36.9; O2SAT 100
--- NOTE | 2021-11-05 21:28 | ED.EXTPRO ---
HPI - Extremity Problem General Chief complaint: Extremity Problem,Nontraumatic Stated complaint: foot surg yesterday increased pain Time Seen by Provider: 11/05/21 21:15 Source: patient History of Present Illness HPI Narrative: Patient presents with foot pain. Patient ports she had foot surgery yesterday at [facility] she is not sure what kind of foot surgery. Reports since then she has had severe pain that radiates up her leg described as a burning sensation worse with moving her foot. She reports she had this kind of surgery on her foot and had no complications. She reports she has been taking her Percocet is not alleviated her symptoms. Related Data Home Medications Medication Instructions Recorded Confirmed furosemide 20 mg PO BID 08/31/20 07/29/21 Allergies Allergy/AdvReac Type Severity Reaction Status Date / Time Penicillins Allergy Unknown Dizziness, Verified 08/08/21 09:07 N/V Review of Systems Review of Systems: CONSTITUTIONAL: Denies fever, chills, or sweats. EYES: Denies visual changes, redness, or discharge. ENT: Denies rhinorrhea, congestion, sore throat, or otalgia. CARDIOVASCULAR: Denies chest pain, palpitations, or edema. RESPIRATORY: Denies cough or dyspnea. GASTROINTESTINAL: Denies abdominal pain, nausea, vomiting, or diarrhea. GENITOURINARY: Denies dysuria or hematuria. SKIN: Denies rash or itching. MUSCULOSKELETAL: Denies back pain, joint pain, or myalgia. NEUROLOGIC: Denies headache, numbness, dizziness, or weakness. PSYCHIATRIC: Denies anxiety or depression. All systems reviewed & are unremarkable except as noted in HPI and below PMFSH Past Medical History Medical History GERD (gastroesophageal reflux disease) Social History Social History Smoking status: Current every day smoker Gender identity (if verbalized by the patient): Female Exam Narrative: GENERAL: Well-appearing, well-nourished, and in no acute distress. HEAD: Normocephalic, atraumatic. EYES: PERRLA and EOMI. ENT: Nares clear, no rhinorrhea or epistaxis. Mucous membranes moist. NECK: Supple. No masses. No JVD EXTREMITIES: Ecchymosis and edema as well as erythema noted to the right foot diffusely surgical wound without dehiscence or purulent drainage SKIN: Warm, dry, no rash. NEURO: No focal deficits. Alert and oriented x3. PSYCH: Normal mood and affect. Course Reevaluation(s) Reevaluation #1: Patient reports feeling improved results and plan reviewed with patient patient is comfortable with outpatient plan. Date: 11/05/21 Vital Signs Vital signs: Vital Signs Temperature 36.9 C 11/05/21 19:40 Pulse Rate 91 11/05/21 19:40 Respiratory Rate 24 H 11/05/21 19:40 Blood Pressure 133/107 H 11/05/21 19:40 Pulse Oximetry 100 11/05/21 19:40 Temperature 36.9 C 11/05/21 19:40 Pulse Rate 80 11/06/21 00:32 Respiratory Rate 18 11/06/21 00:32 Blood Pressure 110/57 L 11/06/21 00:32 Pulse Oximetry 99 11/06/21 00:32 MDM - Extremity (Nontraumatic) MDM Narrative Medical decision making narrative: H&P as above, vss, pt looks clinically well, exam with age-appropriate postoperative changes, labs clinically unremarkable, img unremarkable, additional labs/img considered, symptomatic relief available as needed, on reevaluation pt continues to looks clinically well. Attempted to contact patient's surgeon in contacting their clinic attempted to contact the hospital obtain a call schedule. Surgical facility seen was found had no call scheduled for podiatry. Records obtained from [facility] no complications were documented during the procedure. Patient's clinic had no on-call schedule or a way to contact the physician. Suspect pain is likely related to the edema and recent surgery, dns hardware failure, osteomyelitis, wound infection. plan to tx/monitor as op w/ pcm f/u fin
[2021-11-05] MEDS: MORPHINE SULFATE (*CRX) 4 MG/ML INJ IV PUSH ×2 (21:38→23:11)
[2021-11-05 21:42] VITALS: BP 132/67; PULSE 78; RESP 18
[2021-11-05 23:11] VITALS: BP 128/76; PULSE 78; RESP 18; O2SAT 99
[2021-11-05 23:56] LABS: Basophils Percent Auto 0.3 % (0.2-1.2); Eosinophils Absolute Auto 0.1 K/mm3 (0-0.3); Eosinophils Percent Auto 0.7 % (0-4.4); Hematocrit 40.7 % (37.0-47.0); Hemoglobin 13.2 g/dL (12.0-15.0); Immature Granulocyte Absolute 0.03 K/mm3 (0.00-0.031); Immature Granulocyte Percent A 0.2 % (0-0.5); Lymphocytes Absolute Auto 3.96 K/mm3 (0.9-3.2); Lymphocytes Percent Auto 32.4 % (18.3-44.2); Mean Corpuscular HGB Conc 32.4 g/dl (32-36); Mean Corpuscular Hemoglobin 31.5 pg (26-34); Mean Corpuscular Volume 97.1 fl (80-100); Mean Platelet Volume 10.5 fl (7.4-10.4); Monocytes Percent Auto 7.9 % (2.6-8.5); Neutrophils Absolute Auto 7.1 K/mm3 (1.3-6.7); Neutrophils Percent Auto 58.5 % (45.5-73.1); Platelet Count Result 291 k/mm3 (150-375); Red Blood Count 4.19 M/mm3 (4.2-5.4); Red Cell Distribution Width 14.9 % (11.5-14.5); White Blood Count 12.2 K/mm3 (4.5-10.0)
[2021-11-06 00:01] LABS: Alanine Aminotransferase 21 U/L (4-35); Albumin Level 4.2 g/dL (3.5-5.1); Alkaline Phosphatase 88 U/L (38-126); Anion Gap 8 mmol/L (8-16); Aspartate Amino Transferase 41 U/L (14-36); Bilirubin,Total 0.4 mg/dL (0.2-1.3); Blood Urea Nitrogen 8 mg/dL (7-17); Calcium 9.1 mg/dL (8.4-10.2); Carbon Dioxide 25 mmol/L (22-30); Chloride 105 mmol/L (98-107); Estimated CRCL calculation 95 ml/min; Estimated Glomerular Filt Rate > 60; Glucose 101 mg/dL (65-110); Potassium 3.4 mmol/L (3.4-5.0); Sodium 138 mmol/L (137-145)
[2021-11-06 00:32] VITALS: BP 110/57; PULSE 80; RESP 18; O2SAT 99
== END 2021-11-06 00:35 | disposition home or self-care (01) ==
PROVIDERS: Emergency Provider Emergency Medicine
DX: M79.671 Pain in right foot (principal); Z98.890 Other specified postprocedural states; K21.9 Gastro-esophageal reflux disease without esophagitis; F17.200 Nicotine dependence, unspecified, uncomplicated
CPT/HCPCS: 36415; 73620; 80053; 85025; 96374; 96376; 99284; J2270; J2704

== ENCOUNTER 2023-03-25 13:11 | Emergency (ER) | payer OTHER, SELFPAY ==
--- NOTE | ~2023-03-25 | CT_ITS ---
EXAMINATION: CTA BRAIN/CAROTID DATE: 03/25/2023 14:02 INDICATION: Headache, left neck pain and left-sided vision loss TECHNIQUE: Computed tomographic angiography (CTA) of the head and neck was performed with 100 mL Omni paque-350 intravenous contrast. Multiplanar reconstructions and maximum intensity projection 3D-recon structions of the carotid arteries and of the intracranial arteries were created by the technologist on a separate workstation. Precontrast CT of the head was also obtained. Automated exposure control and iterative reconstruction technique were employed.The dose-length product was 350.20 mGy-cm. COMPARISON: None. FINDINGS: Carotid arteries: Normal caliber aortic arch with no atherosclerotic plaque or dissection. Minimal atherosclerotic plaq ue with 0% stenosis of the right carotid bulb relative to normal distal artery lumen diameter (NASCET criteria). There is no evident atherosclerotic plaque with 0% stenosis of the left carotid bulb rela tive to normal distal artery lumen diameter. Visualized portion of the upper lungs are clear. The vis ualized superior mediastinum and cervical soft tissues are unremarkable. There is reversal of the nor mal cervical lordosis with normal vertebral body and disc heights. Multilevel mild bilateral cervical facet osteoarthritis and mild to moderate osteoarthritis at the atlantoaxial articulation. Head: No acute intracranial hemorrhage, acute infarction or abnormal extra axial fluid collection. Ventricl es are normal and symmetric. No mass/mass effect. Small mucous retention cysts in the left maxillary sinus. The orbits and mastoid air cells are normal. No abnormally enhancing brain lesions on the post contrast images. Intracranial arteries There is no hemodynamically significant stenosis in the vertebral, basilar and internal carotid arter ies. Vertebral arteries are codominant. There are no aneurysms identified. Both A1 and P1 segments a re patent. Cerebral arterial arborization appears symmetric. IMPRESSION: 1. 0% stenosis of the right and left carotid bulbs relative to normal distal artery lumen diameter (N ASCET criteria). 2. No acute intracranial process or abnormally enhancing brain lesions. 3. Unremarkable cerebral CT angiogram with no evident significant stenosis or aneurysm Reviewed, dictated and finalized at location A. IMPRESSION: 1. 0% stenosis of the right and left carotid bulbs relative to normal distal ar cristobal lumen diameter (NASCET criteria). 2. No acute intracranial process or abnormally enhancing brain lesions. 3. Unremarkable cerebral CT angiogram with no evident significant stenosis or a neurysm
[2023-03-25 13:14] VITALS: BP 145/80; PULSE 78; RESP 16; TEMP 36.6; O2SAT 100
--- NOTE | 2023-03-25 13:32 | ED.HA ---
HPI - Headache General Chief Complaint: Headache Stated Complaint: headache Time Seen by Provider: 03/25/23 13:22 History of Present Illness HPI Narrative: Patient is a 42-year-old female here for evaluation of left-sided headache, left-sided blurry vision, numbness and tingling in the left side of her face and dizziness for the past day and a half. Patient states that her symptoms have come on gradually. She has been taking ibuprofen and Benadryl without relief of her symptoms. No fevers, nausea, vomiting, diarrhea or constipation. Related Data Home Medications Medication Instructions Recorded Confirmed furosemide 20 mg tablet 20 mg PO BID 08/31/20 07/29/21 Allergies Allergy/AdvReac Type Severity Reaction Status Date / Time Penicillins Allergy Unknown Dizziness, Verified 03/25/23 13:20 N/V Review of Systems Review of Systems: Gen: Denies fevers or chills Eyes: Reports visual change ENT: Denies congestion Respiratory: Denies shortness of breath or cough CV: Denies chest pain or palpitations GI: Denies abdominal pain nausea, emesis or diarrhea : denies burning, urgency, frequency or hematuria Musculoskeletal: Denies back pain or muscle pain Neuro: Reports headache, numbness, tingling. Skin: Denies rash Except as documented, all other systems reviewed and negative PMFSH Past Medical History Medical History GERD (gastroesophageal reflux disease) Social History Social History Smoking status: Current every day smoker Gender identity (if verbalized by the patient): Female Exam Narrative: APPEARANCE: Well appearing, no pain in distress, well-nourished. Head: Normocephalic and atraumatic. EYES: PERRLA/EOMI, conjunctivae clear NOSE: No nasal drainage EARS: External ear normal in appearance THROAT: Oropharynx is clear. Mucous membranes are moist. NECK: Supple. No adenopathy, no masses. RESPIRATORY: Airway patent, respirations nonlabored. Clear to auscultation bilaterally, no rales, rhonchi, wheezing. CARDIOVASCULAR: Regular rate and rhythm without murmurs, rubs, or gallops. ABDOMINAL: Normoactive bowel sounds. Soft, nontender, nondistended. No rebound tenderness or guarding. MUSCULOSKELETAL: Extremities are warm and well-perfused. Moves all extremities well. No edema. NEURO: Cranial nerves II through XII intact. [id number] normal. Mddb-[id number]-plyp normal. 5 out of 5 strength in bilateral upper and lower extremities. Normal speech. No focal neurologic deficits. SKIN: Skin is warm and dry. No rashes. PSYCHIATRIC: Normal affect/mood.. Course Vital Signs Vital signs: Vital Signs Temperature 97.9 F 03/25/23 13:14 Pulse Rate 78 03/25/23 13:14 Respiratory Rate 16 03/25/23 13:14 Blood Pressure 145/80 H 03/25/23 13:14 Pulse Oximetry 100 03/25/23 13:14 Oxygen Delivery Room Air 03/25/23 13:14 Temperature 96.7 F L 03/25/23 14:23 Pulse Rate 70 03/25/23 15:44 Respiratory Rate 16 03/25/23 15:44 Blood Pressure 117/64 03/25/23 15:44 Pulse Oximetry 100 03/25/23 15:44 Oxygen Delivery Room Air 03/25/23 13:14 MDM - Headache MDM Narrative Medical decision making narrative: 42-year-old female here for evaluation of left sided facial numbness, pressure behind left eye with some blurry vision, dizziness for the past day and a half. No history of migraine headaches. She is nontoxic in appearance and has no focal deficits on exam with an NIH of 0. Head CT and CTA are negative. Patient was treated with migraine cocktail with slight improvement of her headache but symptoms of blurry vision and numbness are still there. Spoke with Dr. Zamora who would favor admission for MRI and MRV. Patient was updated on these findings, she then told the nurse that she would like to leave AGAINST MEDICAL ADVICE. She is aware of the risks of leaving and delay
--- NOTE | 2023-03-25 13:45 | PC.NURSE ---
Pt to CT scan via w/c at this time.
[2023-03-25 13:51] LABS: Basophils Absolute Auto 0.1 K/mm3 (0.0-0.1); Basophils Percent Auto 0.4 % (0.2-1.2); Eosinophils Absolute Auto 0.1 K/mm3 (0-0.3); Eosinophils Percent Auto 1.1 % (0-4.4); Hematocrit 38.9 % (37.0-47.0); Hemoglobin 12.7 g/dL (12.0-15.0); Immature Granulocyte Absolute 0.04 K/mm3 (0.00-0.031); Immature Granulocyte Percent A 0.4 % (0-0.5); Lymphocytes Absolute Auto 3.49 K/mm3 (0.9-3.2); Lymphocytes Percent Auto 30.6 % (18.3-44.2); Mean Corpuscular HGB Conc 32.6 g/dl (32-36); Mean Corpuscular Hemoglobin 30.6 pg (26-34); Mean Corpuscular Volume 93.7 fl (80-100); Monocytes Absolute Auto 0.7 K/mm3 (0.1-0.6); Monocytes Percent Auto 5.8 % (2.6-8.5); Neutrophils Absolute Auto 7.1 K/mm3 (1.3-6.7); Neutrophils Percent Auto 61.7 % (45.5-73.1); Platelet Count Result 314 k/mm3 (150-375); Red Blood Count 4.15 M/mm3 (4.2-5.4); White Blood Count 11.4 K/mm3 (4.5-10.0)
[2023-03-25 13:58] LABS: Estimated CRCL calculation 105 ml/min; Estimated Glomerular Filt Rate > 60
[2023-03-25 14:18] LABS: Anion Gap 4 mmol/L (8-16); Blood Urea Nitrogen 9 mg/dL (7-17); Calcium 9.1 mg/dL (8.4-10.2); Carbon Dioxide 27 mmol/L (22-30); Chloride 106 mmol/L (98-107); Estimated CRCL calculation 105 ml/min; Estimated Glomerular Filt Rate > 60; Glucose 93 mg/dL (65-110); Magnesium 1.9 mg/dL (1.6-2.3); Potassium 3.8 mmol/L (3.4-5.0); Sodium 137 mmol/L (137-145)
[2023-03-25] MEDS: PROCHLORPERAZINE EDISYLATE 10 MG/2 ML VIAL IV PUSH (14:18)
[2023-03-25] MEDS: diphenhydrAMINE HCl INJ 50 MG/ML VIAL 12.5 MG IV PUSH (14:18)
[2023-03-25 14:23] VITALS: BP 112/55; PULSE 68; RESP 18; TEMP 35.9; O2SAT 99
[2023-03-25 15:44] VITALS: BP 117/64; PULSE 70; RESP 16; O2SAT 100
== END 2023-03-25 16:15 | disposition left against medical advice (07) ==
PROVIDERS: Emergency Provider Physician Assistant; PCP Physician Assistant
DX: G43.829 Menstrual migraine, not intractable, without status migrainosus (principal); F17.210 Nicotine dependence, cigarettes, uncomplicated
CPT/HCPCS: 36415; 70496; 70498; 80048; 81025; 83735; 85025; 96374; 96375; 99284; J0780; J1200; Q9967

== ENCOUNTER 2023-09-13 07:48 | Emergency (ER) | payer OTHER, SELFPAY ==
[2023-09-13] VITALS (8 sets, daily range): BP systolic 107–116; BP diastolic 67–81; PULSE 76–111; RESP 17–29; TEMP 36.9; O2SAT 97–100
--- NOTE | ~2023-09-13 | CT_ITS ---
EXAMINATION: CT BRAIN W/O DATE: 09/13/2023 08:32 INDICATION: Headache. TECHNIQUE: Computed tomography (CT) of the head was performed without intravenous contrast. The dose- length product was 605.33 mGy-cm. Automated exposure control and iterative reconstruction technique w ere employed.6 COMPARISON: No prior studies for comparison. FINDINGS: Normal brain parenchymal volume for age. Normal lacey-white differentiation. No acute intrac ranial hemorrhage, infarction, mass or mass effect. No ventriculomegaly or midline shift. Midline sagittal images demonstrate a normal corpus callosum, c raniovertebral junction and sella turcica. Basilar cisterns are patent. Paranasal sinuses and mastoids are pneumatized. No depressed skull fractures. IMPRESSION: 1. No acute intracranial abnormality. Reviewed, dictated and finalized at location A. [employer] MAN
--- NOTE | 2023-09-13 08:00 | ECG_ITS ---
Measurements Intervals [place] Rate: 84 P: 41 LA: 108 QRS: 41 QRSD: 99 T: 27 QT: 374 QTc: 442 Interpretive Statements SINUS RHYTHM WITH SHORT LA INTERVAL NONSPECIFIC T-WAVE ABNORMALITY BORDERLINE ECG COMPARED WITH 06/30/2021 NO DIFFERENCE Electronically Signed On 09-13-2023 9:09:37 GUEST SERVICE AIDE by Bryon Almonte M.D.
[2023-09-13 08:17] LABS: Basophils Percent Auto 0.4 % (0.2-1.2); Eosinophils Absolute Auto 0.1 K/mm3 (0-0.3); Eosinophils Percent Auto 0.6 % (0-4.4); Immature Granulocyte Absolute 0.03 K/mm3 (0.00-0.031); Immature Granulocyte Percent A 0.4 % (0-0.5); Lymphocytes Absolute Auto 0.32 K/mm3 (0.9-3.2); Mean Corpuscular HGB Conc 32.5 g/dl (32-36); Mean Corpuscular Hemoglobin 29.7 pg (26-34); Mean Corpuscular Volume 91.3 fl (80-100); Mean Platelet Volume 11.1 fl (7.4-10.4); Monocytes Absolute Auto 0.6 K/mm3 (0.1-0.6); Monocytes Percent Auto 7.7 % (2.6-8.5); Neutrophils Percent Auto 86.9 % (45.5-73.1); Platelet Count Result 247 k/mm3 (150-375); Red Blood Count 4.38 M/mm3 (4.2-5.4); Red Cell Distribution Width 14.6 % (11.5-14.5); White Blood Count 8.1 K/mm3 (4.5-10.0)
--- NOTE | 2023-09-13 08:19 | ED.GENADULT ---
HPI - General Adult General Chief complaint: Unspecified Stated complaint: I don't feel well. Time Seen by Provider: 09/13/23 08:01 History of Present Illness HPI narrative: 43-year-old female presenting to the emergency department for evaluation for headache and not feeling well. Patient states that when she went to bed last night she was feeling okay but over the course of the night she started developing a headache. Patient states that the headache kept her up all night. This morning the patient had an episode of nausea vomiting due to the severity of the headache. Patient states she is also having bilateral arm numbness at that time. Patient states the arm numbness has resolved. Patient was unsure if she was hyperventilating at that time. Upon arrival to the emergency department patient states that the headache is improving but is still present. Patient denies any chest pain shortness of breath abdominal pain pain with urination. Patient reports she does have a history of migraine Related Data Home Medications Medication Instructions Recorded Confirmed furosemide 20 mg tablet 20 mg PO BID 08/31/20 07/29/21 Allergies Allergy/AdvReac Type Severity Reaction Status Date / Time Penicillins Allergy Unknown Dizziness, Verified 09/13/23 07:59 N/V Review of Systems Review of Systems: All systems reviewed & are unremarkable except as noted in HPI and below PMFSH Past Medical History Medical History GERD (gastroesophageal reflux disease) Social History Social History Smoking status: Current every day smoker Gender identity (if verbalized by the patient): Female Exam Narrative: APPEARANCE: Well appearing, no pain, no distress, well-nourished. HEAD: normocephalic, atraumatic. EYES: PERRLA/EOMI, conjunctivae clear. NOSE: Normal no drainage EARS:TMS clear with good light reflex. THROAT: Pharynx clear, no exudate. NECK: Supple. No adenopathy, no masses. RESPIRATORY: Airway patent, respirations nonlabored. Clear to auscultation bilaterally, no rales, rhonchi, wheezing. CARDIOVASCULAR: Regular rate and rhythm without murmurs rubs or gallops. ABDOMINAL: Soft, nontender, nondistended, normal bowel sounds MUSCULOSKELETAL: Moves all extremities. Strength/ROM intact, No edema, No calf tenderness. NEURO: Alert. Cranial nerves II through XII intact. Neurologically intact SKIN: Warm, dry. Normal Color Course Course Emergency Course: 43-year-old female presenting to the emergency department for evaluation for headache nausea vomiting and not feeling well. The patient does feel improved with treatment and states her headache is resolved. Patient is afebrile with no leukocytosis stable hemoglobin of 13.0. patient's head CT showed no acute intracranial abnormality. Patient did test positive for COVID. Patient was updated on results of her imaging and labs. All questions concerns were addressed patient was well-appearing at time of discharge. At time of discharge patient's headache was resolved and patient was well appearing. Vital Signs Vital signs: Vital Signs Temperature 98.5 F 09/13/23 07:56 Pulse Rate 94 09/13/23 07:56 Respiratory Rate 29 H 09/13/23 07:56 Blood Pressure 116/67 09/13/23 07:56 Pulse Oximetry 100 09/13/23 07:56 Oxygen Delivery Room Air 09/13/23 07:56 Temperature 98.5 F 09/13/23 07:56 Pulse Rate 76 09/13/23 09:15 Respiratory Rate 17 09/13/23 09:15 Blood Pressure 115/75 09/13/23 08:15 Pulse Oximetry 98 09/13/23 09:15 Oxygen Delivery Room Air 09/13/23 07:56 Medical Decision Making Differential Diagnosis Differential Diagnosis: Migraine, COVID, dehydration Vital Signs Vital Signs: Vital Signs Temperature 98.5 F 09/13/23 07:56 Pulse Rate 94 09/13/23 07:56 Respiratory Rate 29 H 09/13/23 07:56 Blood
[2023-09-13] MEDS: diphenhydrAMINE HCl INJ 50 MG/ML VIAL 25 MG IV PUSH (08:24)
[2023-09-13] MEDS: METOCLOPRAMIDE HCL INJ 10 MG/2 ML VIAL IV PUSH (08:24)
[2023-09-13 08:26] LABS: Alanine Aminotransferase 24 U/L (6-35); Alkaline Phosphatase 91 U/L (38-126); Anion Gap 6 mmol/L (8-16); Aspartate Amino Transferase 29 U/L (14-36); Bilirubin,Total 0.3 mg/dL (0.2-1.3); Blood Urea Nitrogen 9 mg/dL (7-17); Calcium 9.2 mg/dL (8.4-10.2); Carbon Dioxide 20 mmol/L (22-30); Chloride 107 mmol/L (98-107); Estimated CRCL calculation 102 ml/min; Estimated Glomerular Filt Rate > 60; Glucose 110 mg/dL (65-110); Potassium 3.9 mmol/L (3.4-5.0); Sodium 133 mmol/L (137-145)
--- NOTE | 2023-09-13 08:26 | PC.NURSE ---
Pt to CT
[2023-09-13] MEDS: SODIUM CHLORIDE 0.9% IV 1,000 ML 999 ML IV CONT (09:00)
[2023-09-13] MEDS: KETOROLAC 15 MG/ML VIAL (*BKC) IV PUSH (09:07)
[2023-09-13 09:23] LABS: Influenza A QL RT-PCR Negative (Negative); Influenza B QL RT-PCR Negative (Negative); RSV RNA, RT-PCR Negative (Negative); SARS-CoV-2 RNA PCR Positive (Negative)
== END 2023-09-13 09:49 | disposition home or self-care (01) ==
PROVIDERS: Emergency Provider Emergency Medicine; PCP Physician Assistant
DX: U07.1 COVID-19 (principal); G43.909 Migraine, unspecified, not intractable, without status migrainosus; K21.9 Gastro-esophageal reflux disease without esophagitis
CPT/HCPCS: 36415; 70450; 80053; 85025; 87637; 93005; 96361; 96374; 96375; 99284; J1200; J1885; J2765; J7030